=== PATIENT | male | born 1975 | race Caucasian/White ===

== ENCOUNTER → 2017-06-16 | Outpatient (CLI) | payer OTHER ==
[~2017-06-16] MED LIST: IOPAMIDOL 76% 75 ML INFUS BTL 75 ML ONE; NS 0.9% 20 ML SDV 60 ML ONE
--- NOTE | 2017-06-16 11:07 | RADIOLOGY IMAGING REPORT ---
FACILITY: [facility] [place] PATIENT NAME: Nam Cuellar : 1975 MR: [id number] V: [id number] EXAM DATE: ORDERING PHYSICIAN: GUERRERO RICH TECHNOLOGIST: Location: [facility] Patient: Nam Cuellar : 1975 Visit/Account:[id number] Date of Sevice: 06/16/2017 EXAMINATION: CT Abdomen W/O Contrast CT Abdomen W/ Contrast CT Pelvis W/O Contrast CT Pelvis W/ Contrast 06/16/2017 8:30 AM HISTORY: Generalized lower abdominal pain for 2 weeks TECHNIQUE: Spiral scans were obtained through the abdomen and pelvis before and during injection of nonionic iodinated intravenous contrast. Contrast: 75 mL of IV Isovue 370. One of the following dose optimization techniques was utilized in the performance of this exam: Autom ated exposure control; adjustment of the mA and/or kV according to the patient's size; or use of an i terative reconstruction technique. Specific details can be referenced in the facility's radiology C T exam operational policy. COMPARISON STUDIES: none. FINDINGS: Liver / biliary: negative Pancreas: negative Spleen: negative Adrenal glands: negative Kidneys / retroperitoneum: negative Pelvic structures: negative Bowel / peritoneum / mesenteries: Acute diverticulitis of the sigmoid colon. There are multiple smal l collections of extraluminal gas and fluid measuring up to about 3.5 cm without a well-organized dom inant abscess. No distant free intraperitoneal air. Appendix is normal. Small bowel is unremarkabl e. Vessels: negative Musculoskeletal / Body wall: negative Lymph node assessment: negative Lower chest: negative IMPRESSION: Perforated diverticulitis. There are multiple small extraluminal collections of gas and fluid. Ther e is no dominant drainable abscess collection at this point. I called report to GUERRERO RICH at 06/16/2017 11:04 AM. Report Dictated By: Mario Forbes MD at 06/16/2017 10:50 AM Report E-Signed By: Mario Forbes MD at 06/16/2017 11:04 AM WSN:[email or web address]
== END ==
LOC: CT 08:16
PROVIDERS: ATTEND Family Medicine
DX: K57.92 Diverticulitis of intestine, part unspecified, without perforation or abscess without bleeding (principal)
CPT/HCPCS: 74178; J7050; Q9967

== ENCOUNTER → 2017-06-27 | Outpatient (CLI) | payer OTHER ==
[~2017-06-27] MED LIST changes: +ACET-1966 PO; +IBUP200C71 PO; -IOPAMIDOL 76% 75 ML INFUS BTL 75 ML ONE; +LEVO-85 PO; +LORA-802 PO; +METR-160 PO; -NS 0.9% 20 ML SDV 60 ML ONE
[2017-06-27 11:52] LABS: PLATELET COUNT, AUTOMATED 368 K/uL (150-450)
== END ==
LOC: LAB 11:31
PROVIDERS: ATTEND Surgery
DX: K57.32 Diverticulitis of large intestine without perforation or abscess without bleeding (principal)
CPT/HCPCS: 36415; 82310; 82374; 82435; 82565; 82947; 84132; 84295; 84520; 85025

== ENCOUNTER → 2017-06-30 | Outpatient (CLI) | payer OTHER ==
[~2017-06-30] MED LIST changes: +IOPAMIDOL 76% 75 ML INFUS BTL 75 ML ONE; +NS 0.9% 20 ML SDV 40 ML ONE
--- NOTE | 2017-06-30 16:23 | RADIOLOGY IMAGING REPORT ---
[place] [facility] [place] Nam Cuellar : 1975 MR: [id number] V: [id number] EXAM DATE: ORDERING PHYSICIAN: MARIANA ROMANO TECHNOLOGIST: Location: [facility] [place] Patient: Nam Cuellar : 1975 Visit/Account:[id number] Date of Sevice: 06/30/2017 ABDOMEN/PELVIS WITH CONTRAST HISTORY: Sigmoid diverticulitis TECHNIQUE: Following administration of IV contrast contiguous axial images acquired through the abdom en/pelvis. Coronal and sagittal reformatting also performed. Dose Lowering Technique One of the following dose optimization techniques was utilized in the performance of this exam: Autom ated exposure control; adjustment of the mA and/or kV according to the patient's size; or use of an i terative reconstruction technique. Specific details can be referenced in the facility's radiology C T exam operational policy. CONTRAST: 75 mL Isovue-370 COMPARISON: June 16, 2017 FINDINGS: Visualized lung bases: Negative. Hepatobiliary: Negative Spleen: Negative. Adrenals: Negative. Pancreas: Negative. Kidneys ureters or bladder: Negative. Genitalia: Negative GI: Again noted is diverticulitis of the sigmoid colon with infiltrative changes seen in the surroun ding pericolonic fat. The extraluminal collections of fluid and small air bubbles appear slightly le ss prominent with no new areas of fluid or developing phlegmon. . The remainder the bowel appears u nremarkable. The appendix is visualized and does not appear inflamed Vessels/spaces/nodes: Negative. Bones/soft tissues: Negative. Additional findings: None pertinent. IMPRESSION: Again noted is diverticulitis in the sigmoid colon with infiltrative changes seen in the surrounding pericolonic fat. The extraluminal collections of fluid and small air bubbles appear slightly less pr ominent when compared the prior study with no new collections identified. Report Dictated By: Caridad Muniz MD at 06/30/2017 4:12 PM Report E-Signed By: Caridad Muniz MD at 06/30/2017 4:20 PM WSN:[email or web address]
== END ==
LOC: CT 06-26 02:30
PROVIDERS: ATTEND Surgery
DX: K57.32 Diverticulitis of large intestine without perforation or abscess without bleeding (principal)
CPT/HCPCS: 74177; J7050; Q9967

== ENCOUNTER 2017-08-13 02:44 | Day surgery (SDC) | payer OTHER ==
[~2017-08-13] VITALS: Ht 180.3 cm; Wt 101.6 kg
[~2017-08-13 02:44] MED LIST changes: -IOPAMIDOL 76% 75 ML INFUS BTL 75 ML ONE; -NS 0.9% 20 ML SDV 40 ML ONE
[2017-08-13 06:38] VITALS: BP 132/83
[2017-08-13] MEDS ORDERED: NORMOSOL R SOLN(*) 1000 ML BAG 1,000 ML IV PRN (08:00)
[2017-08-13] MEDS ORDERED: LIDOCAINE/SOD BICARB 8.4% SYR ID ONE (08:00)
[2017-08-13] MEDS ORDERED: PROPOFOL EMUL(*) 10MG/ML 20 ML 20 ML ONE (09:01)
[2017-08-13] MEDS ORDERED: PROPOFOL EMUL(*) 10MG/ML 20 ML 40 ML ONE (09:01)
[2017-08-13 09:54] VITALS: BP 98/59
--- NOTE | 2017-08-13 10:02 | Short(Outpt) Discharge Summary ---
Discharge Summary Reason for Hosp/Final Diag: (1) Diverticulitis of colon with perforation Status: Resolved Hospital Course & Plan: Colonoscopy with polypectomy x1 completed without problems. Departure Discharge to: Home, Self Care Discharge Instructions Home Meds Reported Medications Loratadine (CLARITIN) 10 Mg Tablet, 10 MG PO PRN 06/23/17 Ibuprofen (IBUPROFEN) 200 Mg Capsule, 1-2 CAP PO Q6H Y for prn, CAPSULE 06/23/17 Acetaminophen (TYLENOL) 325 Mg Tablet, 325 MG PO PRN, TAB 06/23/17 Diet: Regular Activity: As Tolerated Special Instructions: Your colonoscopy was completed without problems and your prep was excellent (Good Job!!). I removed a single polyp from your colon. I didn't see any evidence of inflammation or cancer. The polyp was sent to pathology. My office will call you in the next week to let you know what the polyp is and when your next colonoscopy should be (either 5 or 10 years depending on what the polyp is). Problem Qualifiers (1) Diverticulitis of colon with perforation: Diverticulitis bleeding: without bleeding Qualified Codes: K57.20 - Diverticulitis of large intestine with perforation and abscess without bleeding MARIANA ROMANO MD Aug 13, 2017 10:02
[2017-08-13 10:15] VITALS: BP 112/81
[2017-08-13 10:31] VITALS: BP 104/78
[2017-08-13 10:34] VITALS: BP 124/88
== END 2017-08-13 10:44 | disposition home or self-care (01) ==
LOC: OR 02:44
PROVIDERS: ATTEND Surgery
DX: K63.5 Polyp of colon (principal)
CPT/HCPCS: 00811; 45385; 88305; J2704

== ENCOUNTER 2018-10-19 14:00 | Emergency (ER) | payer OTHER ==
[~2018-10-19 14:00] MED LIST changes: -LEVO750T44 PO
[2018-10-19] MEDS ORDERED: NS(*) 0.9% 1000 ML BAG 1,000 ML IV ONE (14:12)
--- NOTE | 2018-10-19 14:12 | ER Report ---
History and Physical Time Seen By MD: 14:12 Hx. of Stated Complaint: cough, shortness of breath, rapid heart rate HPI/ROS CHIEF COMPLAINT: Shortness of breath, cough, fever HISTORY OF PRESENT ILLNESS: 43-year-old male patient presents to emergency room with complaint of shortness of breath, cough, fever. Patient states that he has been ill since . He states it came on very suddenly. He said to go home at that time. He states that since then he's been having chills, shaking, cough. He states last night he did drink a lot of water in a short period time and did vomit. He states that he did go to urgent care today. He was evaluated there. They told him that he had a really high white count, 24,000 and recommended he come here. He states his last dose of Tylenol was at 7:00 this morning. He states that he does feel short of breath and seems to get tired with all activity. Patient states these had perpetual rigors over the last several days. REVIEW OF SYSTEMS: Respiratory: As noted above Cardiovascular: No chest pain, no palpitations. Gastrointestinal: No vomiting, no abdominal pain. Musculoskeletal: No back pain. Allergies: Coded Allergies: No Known Drug Allergies (Unverified , 08/07/17) Home Meds Active Scripts Levofloxacin 750 Mg Tab (LEVAQUIN 750 MG TAB) 750 Mg Tablet, 750 MG PO DAILY, #9 TAB Prov:TI NDIAYE SLURRY MIXER 10/19/18 Reported Medications Loratadine (CLARITIN) 10 Mg Tablet, 10 MG PO PRN 06/23/17 Ibuprofen (IBUPROFEN) 200 Mg Capsule, 1-2 CAP PO Q6H PRN for prn, CAPSULE 06/23/17 Acetaminophen (TYLENOL) 325 Mg Tablet, 325 MG PO PRN, TAB 06/23/17 Past Medical/Surgical History Patient has a past medical history of arm fracture, alcohol use. Patient has a surgical history of left ulnar surgery, left knee surgery. Reviewed Nurses Notes: Yes Smoking Status: Former Smoker Hx Substance Use Disorder: No Hx Alcohol Use: Yes Constitutional Vital Sign - Last 24 Hours 10/19/18 10/19/18 10/19/18 10/19/18 14:05 14:05 14:30 15:00 Temp 100.0 Pulse 141 132 123 Resp 22 14 25 B/P (MAP) 139/91 (107) 139/91 119/86 (97) Pulse Ox 90 90 92 O2 Delivery Room Air 10/19/18 10/19/18 10/19/18 10/19/18 15:30 16:00 16:30 17:00 Pulse 120 114 107 105 Resp 28 28 30 30 B/P (MAP) 117/73 (88) 118/79 (92) 125/79 (94) 134/86 (102) Pulse Ox 88 90 90 90 10/19/18 10/19/18 17:30 18:00 Pulse 103 105 Resp 23 23 B/P (MAP) 137/91 (106) 137/99 (112) Pulse Ox 90 89 Physical Exam General Appearance: The patient is alert, has no immediate need for airway protection and no current signs of toxicity. Respiratory: Chest is non tender, lungs are clear to auscultation. Cardiac: regular rhythm, patient is tachycardic with ventricular rate of 131 bpm Gastrointestinal: Abdomen is soft and non tender, no masses, bowel sounds normal. Musculoskeletal: Neck: Neck is supple and non tender. Extremities have full range of motion and are non tender. Skin: No rashes or lesions. DIFFERENTIAL DIAGNOSIS: After history and physical exam differential diagnosis was considered for shortness of breath including but not limited to pulmonary infectious process, COPD, asthma, pulmonary embolus and congestive heart failure. Medical Decision Making Data Points Laboratory Hematology Test 10/19/18 14:27 10/19/18 14:56 Lactate 2.0 mmol/L (0.7-2.1) Troponin I < 0.012 ng/ml B-Type Natriuretic Peptide 49 pg/ml (0-100) Influenza Virus Type A (PCR) Negative (NEGATIVE) Influenza Virus Type B (PCR) Negative (NEGATIVE) Chemistry Test 10/19/18 14:27 10/19/18 14:56 Lactate 2.0 mmol/L (0.7-2.1) Troponin I < 0.012 ng/ml B-Type Natriuretic Peptide 49 pg/ml (0-100) Influenza Virus Type A (PCR) Negative (NEGATIVE) Influenza Virus Type B (PCR) Negative (NEGATIVE) EKG/Imaging EKG Interpretation 12 lead EKG: Rhythm: Sinus tachycardia with ventricular rate of 131 bpm [place]: normal QRS: normal ST segments: normal Imaging CT ABDOMEN PELVIS W/O CON EXAMINATION: CT abdomen without IV contrast CT pelvis without IV contrast contrast HISTORY: Liver lesions seen on CT scan of the chest TECHNIQUE: CT scan of the abdomen and pelvis performed from the lung base through pubic symphysis followed by scan from lung base through pubic symphysis after administration of IV contrast. COMPARISON STUDIES: None FINDINGS: Please note that this exam was done without intravenous contrast and sensitivity to detection of parenchymal disease is limited. One of the following dose optimization techniques was utilized in the performance of this exam: Automated exposure control; adjustment of the mA and/or kV according to the patient's size; or use of an iterative reconstruction technique. Specific details can be referenced in the facility's radiology CT exam operational policy. Liver/Biliary: Reidentified are the numerous ill-defined hypodensities scattered within the left and right lobes of liver of varying sizes from subcentimeter up to 6 cm in size. The largest hypoattenuated lesion has a little capsular irregularity and fat stranding paralleling the mass. (Images 36 through 43 seri es 2) Pancreas: No obvious pancreatic mass lesion seen. Spleen: No splenic mass lesion seen. Adrenal glands: No adrenal mass lesion seen Kidneys/Retroperitoneum: There is a very faint ill-defined hypoattenuation in the mid lateral aspect of the left kidney (image 71) measuring approximately 1.5 x 1.0 cm of uncertain significance. Pelvic structures: Prostate is unremarkable. Bladder is well-maintained. Bowel/peritoneum/mesenteries: There is pericolonic stranding and inflammation seen adjacent to the proximal/mid sigmoid colon.. Patient had a previous diverticular abscess in that region and this likely represents post diverticular abscess sequela. No obvious acute diverticulitis noted. There is no obvious colonic mass lesion. No obvious colonic mass lesion to suggest a: CTA. Vessels: Negative Musculoskeletal/body wall: Negative Lymph node assessment: Negative All findings in general awake Lower chest: Negative IMPRESSION: 1. Noncontrast CT scan of the abdomen and pelvis demonstrating no obvious intra- abdominal mass to suggest a possible abdominal or pelvic cancer accounting for the hypodensities in the liver as metastases. 2. Pericolonic stranding changes adjacent to the mid sigmoid colon corresponding to the previous sigmoid diverticulitis/diverticular abscess. This does not appear to represent an acute flareup of the diverticulitis this is not entirely excluded. The liver lesions could still represent liver abscesses if there was an incompletely treated indolent diverticulitis in the sigmoid colon since June 2017 with liver abscesses presenting at this time. . Recommend clinical correlation and appropriate follow-up. 3. Small hypoattenuated area in the left kidney of uncertain significance. Report Dictated By: Bon Monaco MD at 10/19/2018 4:45 PM Report E-Signed By: Bon Monaco MD at 10/19/2018 5:[address] CTA CHEST W & W/O CON COMPARISON: CT abdomen with IV contrast from 07/28/2017. HISTORY: Respiratory distress. TECHNIQUE: Axial CT angiography of the chest with intravenous contrast. Coronal and sagittal reformats. Coronal MIP reconstructions were also created for further evaluation and interpretation. One of the following dose optimization techniques was utilized in the performance of this exam: automated exposure control; adjustment of the mA and/or kV according to patient size; or use of iterative reconstruction technique. Specific details can be referenced in the facility's radiology CT exam operational policy. CONTRAST: 120 mL of IV Isovue-370. CT CHEST FINDINGS: CARDIAC: Mild LAD coronary calcifications. Otherwise negative. MEDIASTINUM/TIFFANIE: No adenopathy or mass. VASCULATURE: There is cardiac pulsation artifact within the ascending aorta and main pulmonary artery. No evidence of acute pulmonary embolism to the segmental level in the upper lobes and right middle lobe, the lobar level in the lower lobes due to respiratory motion artifact. CHEST WALL: No adenopathy or mass. Mild symmetric gynecomastia. LUNGS/PLEURA: No significant acute or chronic lung disease. No consolidation, edema or effusion. Patent central airways. BONES: Unremarkable. LIMITED ABDOMEN: There are multiple bilobar low-density liver lesions which are poorly defined by CTA, with no significant hepatic parenchymal enhancement at the time of this examination. These could be pseudolesions due to fatty liver disease but true lesions are not excluded and none of these have a correlate on 2018 CT of the abdomen. Therefore metastatic disease is the primary concern. The largest abnormality/lesion bridges segment 4A and segment IVb measuring about 4.5 x 7.2 cm on series 4 image 82. There are at least 4 and possibly 5 additional bilobar liver lesions, the liver was incompletely scanned. There is a borderline size peripancreatic node measuring 1.5 cm short axis diameter series 4 image 22 which measured 1.2 cm in 2018. Visualized pancreas is normal but the pancreas was incompletely imaged. . OTHER: Negative. IMPRESSION: 1. There is no evidence of acute pulmonary embolus to the segmental arterial level. 2. No acute-appearing cardiopulmonary findings or specific cause for symptoms. 3. Mild LAD coronary artery calcifications. 4. Numerous bilobar low-density liver lesions with no correlate on 2018 imaging. Therefore hepatic metastases are the primary concern. It is conceivable that these are pseudolesions due to fatty liver disease however this is unlikely . The patient has an elevated white count and infectious etiologies can also be considered. Nonemergent CT abdomen and pelvis may be warranted to assess for a primary malignancy and to reassess the liver lesions. Alternatively if only liver lesion assessment is desired, MRI liver with and without gadolinium could be performed. 5. Borderline enlarged peripancreatic lymph node. Results discussed by telephone with TI NDIAYE on 10/19/2018 3:50 PM. Report Dictated By: Edmund Hammond at 10/19/2018 3:29 PM Report E-Signed By: Edmund Hammond at 10/19/2018 3:58 PM ED Course/Re-evaluation ED Course Patient was admitted to an exam room, history and physical were obtained. Differential diagnoses were considered. On examination lungs are diminished, heart is regular although tachycardia, abdomen is soft and nontender. An IV was started, blood cultures 2 were obtained, lactate was obtained as well as an influenza. The lab results were unremarkable. Lactate was 2.0, influenza was negative. Patient did have blood work done at [facility] urgent care, where his white count was 24,000. Patient had a fever. He did receive a liter of normal saline, a CT pulmonary angiogram of the chest was done. That was negative although it did show some lesions in the liver. I'm unsure what those were. I discussed this with the radiologist and discuss possibility of abscess. He does feel that was likely. We opted to go ahead and do a CT scan of the abdomen and pelvis without contrast. That showed inflammation in the sigmoid and descending colon. Does not appear to be any active diverticulitis. I discussed this with Dr. Diamond, general surgeon. He felt that with the patient not having any abdominal pain that the likelihood of a diverticulitis was small. He recommended discussing the case with medicine. I spoke with Dr. Dexter, hospitalist. He felt that this situation like this there be more prudent to go ahead and treat the pneumonia as opposed to admission. He felt there is anything that would be done here differently. However the patient were to return and is feeling worse at that time of flight be prudent to transfer to a higher level of care for interventional radiology to biopsy or to drain lesions in the liver. I discussed this with patient. Patient states he's feeling significantly better and does feel like he reported vertigo home. We will go ahead and place him on [place]aquin that way covers both respiratory as well as abdominal issues. I would like him to follow-up with Dr. Pack, after his family vacation for further evaluation of the liver lesions. Patient is return to emergency room if condition worsens. I will like patient to follow-up with Dr. Ruffin on Friday or this week for further evaluation of pneumonia and cough. Patient verbalized understanding and agreement with plan. Decision to Disposition Date: October 19, 2018 Decision to Disposition Time: 18:01 Depart Departure Latest Vital Signs Vital Signs Date Time Temp Pulse Resp B/P (MAP) Pulse Ox O2 Delivery O2 Flow Rate FiO2 10/19/18 18:00 105 23 137/99 (112) 89 10/19/18 14:05 100.0 Room Air Impression: Primary Impression: Pneumonia Condition: Improved Disposition: HOME OR SELF-CARE Referrals: MARIANA RUFFIN MD (PCP) New Scripts Levofloxacin 750 Mg Tab (LEVAQUIN 750 MG TAB) 750 Mg Tablet 750 MG PO DAILY, #9 TAB Prov: TI NDIAYE 10/19/18 Patient Instructions: Community Acquired Pneumonia (ED) Additional Instructions: Increase fluid intake. Get plenty of rest. Follow up with Dr. Ruffin on Friday or . Return to the ER if condition worsens. Take Tylenol or Ibuprofen as needed for fevers. Problem Qualifiers Primary Impression: Pneumonia Pneumonia type: due to unspecified organism Laterality: unspecified laterality Lung location: unspecified part of lung Qualified Codes: J18.9 - Pneumonia, unspecified organism TI NDAIYE October 19, 2018 14:12
[2018-10-19] MEDS ORDERED: methylPREDNIS SUCC 125 MG/2ML IVP ONE (14:15)
[2018-10-19] MEDS ORDERED: ACETAMINOPHEN 500 MG TAB PO ONE (14:20)
[2018-10-19] MEDS ORDERED: IOPAMIDOL 76% 100 ML INFUS BTL 100 ML ONE (14:41)
[2018-10-19] MEDS ORDERED: NS(*) 0.9% 50 ML BAG 50 ML ONE (14:41)
[2018-10-19] MEDS ORDERED: cefTRIAXone(*) 2 GM VIAL 2 GM in NS(*) 0.9% 100 ML MINI-BAG 100 ML IVPB ONE (15:20)
--- NOTE | 2018-10-19 16:02 | RADIOLOGY IMAGING REPORT ---
FACILITY: [facility] PATIENT NAME: Nam Cuellar : 1975 MR: [id number] V: [id number] EXAM DATE: ORDERING PHYSICIAN: TI NDIAYE TECHNOLOGIST: Location: [facility] Patient: Nam Cuellar : 1975 Visit/Account:[id number] Date of Sevice: 10/19/2018 CT CTA CHEST W & W/O CON COMPARISON: CT abdomen with IV contrast from 07/28/2017. HISTORY: Respiratory distress. TECHNIQUE: Axial CT angiography of the chest with intravenous contrast. Coronal and sagittal reform ats. Coronal MIP reconstructions were also created for further evaluation and interpretation. One of the following dose optimization techniques was utilized in the performance of this exam: auto mated exposure control; adjustment of the mA and/or kV according to patient size; or use of iterative reconstruction technique. Specific details can be referenced in the facility's radiology CT exam op erational policy. CONTRAST: 120 mL of IV Isovue-370. CT CHEST FINDINGS: CARDIAC: Mild LAD coronary calcifications. Otherwise negative. MEDIASTINUM/TIFFANIE: No adenopathy or mass. VASCULATURE: There is cardiac pulsation artifact within the ascending aorta and main pulmonary arter y. No evidence of acute pulmonary embolism to the segmental level in the upper lobes and right middl e lobe, the lobar level in the lower lobes due to respiratory motion artifact. CHEST WALL: No adenopathy or mass. Mild symmetric gynecomastia. LUNGS/PLEURA: No significant acute or chronic lung disease. No consolidation, edema or effusion. Pat ent central airways. BONES: Unremarkable. LIMITED ABDOMEN: There are multiple bilobar low-density liver lesions which are poorly defined by CT A, with no significant hepatic parenchymal enhancement at the time of this examination. These could b e pseudolesions due to fatty liver disease but true lesions are not excluded and none of these have a correlate on 2018 CT of the abdomen. Therefore metastatic disease is the primary concern. The larges t abnormality/lesion bridges segment 4A and segment IVb measuring about 4.5 x 7.2 cm on series 4 imag e 82. There are at least 4 and possibly 5 additional bilobar liver lesions, the liver was incompletel y scanned. There is a borderline size peripancreatic node measuring 1.5 cm short axis diameter series 4 image 22 which measured 1.2 cm in 2018. Visualized pancreas is normal but the pancreas was incompl etely imaged. . OTHER: Negative. IMPRESSION: 1. There is no evidence of acute pulmonary embolus to the segmental arterial level. 2. No acute-appearing cardiopulmonary findings or specific cause for symptoms. 3. Mild LAD coronary artery calcifications. 4. Numerous bilobar low-density liver lesions with no correlate on 2018 imaging. Therefore hepatic m etastases are the primary concern. It is conceivable that these are pseudolesions due to fatty liver disease however this is unlikely. The patient has an elevated white count and infectious etiologies c an also be considered. Nonemergent CT abdomen and pelvis may be warranted to assess for a primary mal ignancy and to reassess the liver lesions. Alternatively if only liver lesion assessment is desired, MRI liver with and without gadolinium could be performed. 5. Borderline enlarged peripancreatic lymph node. Results discussed by telephone with TI NDIYAE on 10/19/2018 3:50 PM. Report Dictated By: Edmund Hammond at 10/19/2018 3:29 PM Report E-Signed By: Edmund Hammond at 10/19/2018 3:58 PM WSN:[id number]
--- NOTE | 2018-10-19 16:20 | EKG ---
FACILITY: [facility] PATIENT NAME: ZAC DOSHI : [id number] MR: [id number] V: [id number] EXAM DATE: ORDERING PHYSICIAN: TI NDIAYE TECHNOLOGIST: HENRY Test Reason : COUGH, SOB Blood Pressure : / mmHG Vent. Rate : 131 BPM Atrial Rate : 131 BPM P-R Int : 154 ms QRS Dur : 102 ms QT Int : 276 ms P-R-T Axes : 022 -19 019 degrees QTc Int : 407 ms Sinus tachycardia Otherwise normal ECG No previous ECGs available Confirmed by MARIANA SHERMAN ([id number]) on 10/19/2018 8:31:08 PM Referred By: CHERI Confirmed By:MARIANA SHERMAN
--- NOTE | 2018-10-19 17:32 | RADIOLOGY IMAGING REPORT ---
FACILITY: [facility] PATIENT NAME: Nam Cuellar : 1975 MR: [id number] V: [id number] EXAM DATE: ORDERING PHYSICIAN: TI NDIAYE TECHNOLOGIST: [place] [facility] [place] Cu[place] : 1975 Visit/Account:[id number] Date of Sevice: 10/19/2018 ADDENDUM #1 ADDENDUM: Seen but failed to be included on the study was a 2.2 x 1.4 cm peripancreatic lymph node (i mage 50 series 2) and a pericaval lymph node measuring 2.2 x 1.4 cm (image 53 series 2). These are in determinate. Also in the impression the second sentence in #2 should have said "This does not appear to represent an acute flareup of diverticulitis but this is not entirely excluded." Report Dictated By: Bon Monaco MD at 10/19/2018 11:42 PM Report E-Signed By: Bon Monaco MD at 10/19/2018 11:[address] ABDOMEN PELVIS W/O CON EXAMINATION: CT abdomen without IV contrast CT pelvis without IV contrast contrast HISTORY: Liver lesions seen on CT scan of the chest TECHNIQUE: CT scan of the abdomen and pelvis performed from the lung base through pubic symphysis fol lowed by scan from lung base through pubic symphysis after administration of IV contrast. COMPARISON STUDIES: None FINDINGS: Please note that this exam was done without intravenous contrast and sensitivity to detection of pare nchymal disease is limited. One of the following dose optimization techniques was utilized in the performance of this exam: Autom ated exposure control; adjustment of the mA and/or kV according to the patient's size; or use of an i terative reconstruction technique. Specific details can be referenced in the facility's radiology C T exam operational policy. Liver/Biliary: Reidentified are the numerous ill-defined hypodensities scattered within the left and right lobes of liver of varying sizes from subcentimeter up to 6 cm in size. The largest hypoattenuat ed lesion has a little capsular irregularity and fat stranding paralleling the mass. (Images 36 throu gh 43 series 2) Pancreas: No obvious pancreatic mass lesion seen. Spleen: No splenic mass lesion seen. Adrenal glands: No adrenal mass lesion seen Kidneys/Retroperitoneum: There is a very faint ill-defined hypoattenuation in the mid lateral aspect of the left kidney (image 71) measuring approximately 1.5 x 1.0 cm of uncertain significance. Pelvic structures: Prostate is unremarkable. Bladder is well-maintained. Bowel/peritoneum/mesenteries: There is pericolonic stranding and inflammation seen adjacent to the pr oximal/mid sigmoid colon.. Patient had a previous diverticular abscess in that region and this likely represents post diverticular abscess sequela. No obvious acute diverticulitis noted. There is no obv ious colonic mass lesion. No obvious colonic mass lesion to suggest a: CTA. Vessels: Negative Musculoskeletal/body wall: Negative Lymph node assessment: Negative All findings in general awake Lower chest: Negative IMPRESSION: 1. Noncontrast CT scan of the abdomen and pelvis demonstrating no obvious intra-abdominal mass to sug gest a possible abdominal or pelvic cancer accounting for the hypodensities in the liver as metastase s. 2. Pericolonic stranding changes adjacent to the mid sigmoid colon corresponding to the previous sigm oid diverticulitis/diverticular abscess. This does not appear to represent an acute flareup of the di verticulitis this is not entirely excluded. The liver lesions could still represent liver abscesses if there was an incompletely treated indolent diverticulitis in the sigmoid colon since June 2017 with liver abscesses presenting at this time. . Recommend clinical correlation and appropriate follo w-up. 3. Small hypoattenuated area in the left kidney of uncertain significance. Report Dictated By: Bon Monaco MD at 10/19/2018 4:45 PM Report E-Signed By: Bon Monaco MD at 10/19/2018 5:28 PM WSN:[id number]
[2018-10-19 18:00] VITALS: BP 137/99
[2018-10-19] MEDS ORDERED: LEVO750T44 PO (18:02)
[2018-10-19] MEDS ORDERED: LEVOFLOXACIN 750 MG TAB PO ONE (18:05)
== END 2018-10-19 18:25 | disposition home or self-care (01) ==
LOC: ER 14:12
DX: J18.9 Pneumonia, unspecified organism (principal)
CPT/HCPCS: 71275; 74176; 83605; 83880; 84484; 87040; 87502; 93005; 96361; 96365; 96375; 99284; J0696; J2930; J7030; J7050; Q9967

== ENCOUNTER → 2018-10-19 | Outpatient (REF) | payer OTHER ==
[~2018-10-19] MED LIST changes: +IBUP-136 PO; -IBUP200C71 PO; +LEVO750T44 PO; -METR-160 PO; +METR500T15 PO
[2018-10-19 13:07] LABS: PLATELET COUNT, AUTOMATED 212 K/uL (150-450)
== END ==
PROVIDERS: ATTEND Family Medicine
DX: R05 Cough (principal)
CPT/HCPCS: 82040; 82247; 82310; 82374; 82435; 82565; 82947; 84075; 84132; 84155; 84295; 84450; 84460; 84520; 85025; 86140